=== PATIENT | male | born 1980 | race Caucasian/White ===

== ENCOUNTER 2017-03-21 11:31 | Emergency (ER) | payer MEDICAID ==
[2017-03-21] MEDS ORDERED: Albuterol/Ipratropium 3.0-0.5 MG/3 ML Neb Soln NEB ONE (11:50)
--- NOTE | 2017-03-21 11:53 | EDM.PDOC ---
ED HPI GENERAL MEDICAL PROBLEM - General Chief Complaint: Respiratory Problem Stated Complaint: COLD Time Seen by Provider: 03/21/17 11:45 - History of Present Illness INITIAL COMMENTS - FREE TEXT/NARRATIVE: HISTORY AND PHYSICAL: History of present illness: The patient is a 36 y/o male who presents with a two-week history of cough productive of phlegm and some subjective fevers without abdominal complaints of vomiting diarrhea. The patient says that he does have aches and pains in his chest and abdomen because of the persistent coughing and hacking but he is not worried about that discomfort. He does not have a sore throat but does have some nasal drainage that started today. Patient said the last time he had these symptoms he had a bronchitis with pneumonia and is concerned about that. Patient has been eating and drinking normally but he is a tank truck driver and says that he does drink a lot of caffeinated products. He has no known cardiac or pulmonary but he is a tobacco user. Review of systems: As per history of present illness and below otherwise all systems reviewed and negative. Past medical history: As per history of present illness and as reviewed below otherwise noncontributory. Surgical history: As per history of present illness and as reviewed below otherwise noncontributory. Social history: No reported history of drug or alcohol abuse. Family history: As per history of present illness and as reviewed below otherwise noncontributory. Physical exam: Gen.: Well-developed well-nourished overweight male who is nontoxic and vital signs of an reviewed by me HEENT: Atraumatic, normocephalic, pupils reactive, negative for conjunctival pallor or scleral icterus, mucous membranes moist, throat clear, neck supple, nontender, trachea midline. No cervical adenopathy or nuchal rigidity Lungs: Clear to auscultation with occasional coarse breath sound appreciated and subtly diminished breath sounds in the bases but no worker breathing, breath sounds equal bilaterally, chest nontender. Heart: S1S2, regular rate and rhythm no overt murmurs Abdomen: Soft, nondistended, nontender. NABS Pelvis: Stable nontender. Genitourinary: Deferred. Rectal: Deferred. Extremities: Atraumatic, negative for cords or calf pain. Neurovascular unremarkable. Neuro: Awake, alert, oriented. Cranial nerves II through XII unremarkable. Cerebellum unremarkable. Motor and sensory unremarkable throughout. Exam nonfocal. Diagnostics: Chest x-ray Therapeutics: DuoNeb spacer teaching Patient feels improved after the DuoNeb and we will proceed to treat him as a bronchitis but due to his smoking history I will also give him an antibiotic. I described the use of the inhaler as well as the steroids and a buttocks for home and advised hydration and close follow-up with primary care. Impression: Bronchitis Definitive disposition and diagnosis as appropriate pending reevaluation and review of above. - Related Data Allergies Allergy/AdvReac Type Severity Reaction Status Date / Time No Known Allergies Allergy Verified 03/21/17 11:38 Home Meds: Home Meds . [No Known Home Meds] 03/21/17 [History] Past Medical History - Past Health History Medical/Surgical History: Denies Medical/Surgical History Social & Family History - Family History Family Medical History: Noncontributory - Tobacco Use Smoking Status *Q: Current Every Day Smoker Years of Tobacco use: 10 Packs/Tins Daily: 1 - Recreational Drug Use Recreational Drug Use: No ED ROS GENERAL - Review of Systems Review Of Systems: ROS reveals no pertinent complaints other than HPI. ED EXAM, GENERAL - Physical Exam Exam: See Below (See dictation) Course - Vital Signs Last Recorded V/S: Last Vital Signs Temp 36.6 C 03/21/17 11:31 Pulse 84 03/21/17 11:31 Resp 18 03/21/17 11:31 BP 140/92 H 03/21/17 11:31 Pulse Ox 94 L 03/21/17 11:31 - Orders/Labs/Meds Orders: Active Orders 24 hr Category Date Time Status Communication Order [RC] STAT Care 03/21/17 11:51 Active RT Aerosol Therapy [RC] ASDIRECTED Care 03/21/17 11:51 Active Chest 2V [CR] Stat Exams 03/21/17 11:50 Taken Meds: Medications Discontinued Medications Generic Name Dose Route Start Last Admin Trade Name Freq PRN Reason Stop Dose Admin Albuterol/Ipratropium 3 ml 03/21/17 11:50 03/21/17 12:01 Duoneb 3.0-0.5 Mg/3 Ml NEB 03/21/17 11:51 3 ml ONETIME ONE Administration Departure - Departure Time of Disposition: 13:00 Disposition: Home, Self-Care 01 Condition: Good Clinical Impression: Bronchitis - Discharge Information Referrals: PCP,None [Primary Care Provider] - Forms: ED Department Discharge Additional Instructions: The following information is given to patients seen in the emergency department who are being discharged to home. This information is to outline your options for follow-up care. We provide all patients seen in our emergency department with a follow-up referral. The need for follow-up, as well as the timing and circumstances, are variable depending upon the specifics of your emergency department visit. If you don't have a primary care physician on staff, we will provide you with a referral. We always advise you to contact your personal physician following an emergency department visit to inform them of the circumstance of the visit and for follow-up with them and/or the need for any referrals to a consulting specialist. The emergency department will also refer you to a specialist when appropriate. This referral assures that you have the opportunity for followup care with a specialist. All of these measure are taken in an effort to provide you with optimal care, which includes your followup. Under all circumstances we always encourage you to contact your private physician who remains a resource for coordinating your care. When calling for followup care, please make the office aware that this follow-up is from your recent emergency room visit. If for any reason you are refused follow-up, please contact the [facility] emergency department at and ask to speak to the emergency department charge nurse. [facility] Primary care- Internal Medicine and Family [address] [address] Please use your inhaler every 6 hours for the next 2 days and then every 6 hours as needed afterwards. Please also take the prednisone as prescribed and has given to you from the ER. Please also take Zithromax as directed. Please push hydration and try to reduce and/or eliminate smoking and reduce caffeine use. Please call and follow-up with your provider or one of our clinic physicians the next few days for reevaluation and further care. Return to ER as needed and as discussed - My Orders Last 24 Hours: My Active Orders 03/21/17 11:50 Chest 2V [CR] Stat 03/21/17 11:51 Communication Order [RC] STAT RT Aerosol Therapy [RC] ASDIRECTED - Assessment/Plan Last 24 Hours: My Active Orders 03/21/17 11:50 Chest 2V [CR] Stat 03/21/17 11:51 Communication Order [RC] STAT RT Aerosol Therapy [RC] ASDIRECTED
[2017-03-21 13:15] VITALS: BP 146/98
--- NOTE | 2017-03-22 18:36 | CR ---
EXAM DATE: 03/21/17 PATIENT'S AGE: 36 Patient: ESTEPHANIE CARMEN Facility: [place], [place] Site . Site : [id number] Study: XRay Chest [id number]/4/2017 12:33:59 PM Ordering Physician: Brandon Diaz Final Report: INDICATION: pain/sob 2 View Chest. Findings: The lungs are clear. Pulmonary vascularity, mediastinum and cardiac silhouette are within normal limits. No effusions and no pneumothorax. Osseous structures appear unremarkable. Impression: No evidence of acute cardiopulmonary disease. Dictated by: Mk Stone MD @ 03/21/2017 12:51:53 (Electronic Signature) Report Signed by Proxy. [facility]ITAL[facility]
== END 2017-03-21 13:12 | disposition home or self-care (01) ==
LOC: MW.ED 11:31
DX: J40 Bronchitis, not specified as acute or chronic (principal); F17.210 Nicotine dependence, cigarettes, uncomplicated
CPT/HCPCS: 71020; 71020-26; 94664; 99282; 99284-25

== ENCOUNTER 2018-12-10 22:01 | Emergency (ER) | payer SELFPAY ==
--- NOTE | 2018-12-10 22:22 | EDM.PDOC ---
ED HPI GENERAL MEDICAL PROBLEM - General Chief Complaint: General Stated Complaint: UPPER RESPIRATORY Time Seen by Provider: 12/10/18 22:20 - History of Present Illness INITIAL COMMENTS - FREE TEXT/NARRATIVE: HISTORY AND PHYSICAL: History of present illness: Patient is a 38-year-old male who presents with a concern of intermittent cough and left sinus pain 1 day he denies fever chills nausea vomiting he is a smoker. Patient felt he may have aspirated some taco meat several days prior into his nasopharynx Review of systems: As per history of present illness and below otherwise all systems reviewed and negative. Past medical history: As per history of present illness and as reviewed below otherwise noncontributory. Surgical history: As per history of present illness and as reviewed below otherwise noncontributory. Social history: No reported history of drug or alcohol abuse. Family history: As per history of present illness and as reviewed below otherwise noncontributory. Physical exam: HEENT: Atraumatic, normocephalic, pupils reactive, negative for conjunctival pallor or scleral icterus, mucous membranes moist, throat clear, neck supple, nontender, trachea midline. Mild tenderness over the left maxillary sinus Lungs: Coarse bilaterally, breath sounds equal bilaterally, chest nontender. Heart: S1S2, regular, negative for clicks, rubs, or JVD. Abdomen: Soft, nondistended, nontender. Negative for masses or hepatosplenomegaly. Negative for costovertebral tenderness. Pelvis: Stable nontender. Genitourinary: Deferred. Rectal: Deferred. Extremities: Atraumatic, negative for cords or calf pain. Neurovascular unremarkable. Neuro: Awake, alert, oriented. Cranial nerves II through XII unremarkable. Cerebellum unremarkable. Motor and sensory unremarkable throughout. Exam nonfocal. Diagnostics: X-ray chest x-ray sinus Therapeutics: Albuterol ipratropium nebulizer Impression: #1 tracheobronchitis #2 sinusitis Definitive disposition and diagnosis as appropriate pending reevaluation and review of above. - Related Data Allergies Allergy/AdvReac Type Severity Reaction Status Date / Time bee venom protein (honey bee) Allergy Anaphylactic Verified 12/10/18 22:13 Shock Home Meds: Home Meds . [No Known Home Meds] 03/21/17 [History] Past Medical History - Past Health History Medical/Surgical History: Denies Medical/Surgical History Social & Family History - Family History Family Medical History: Noncontributory - Tobacco Use Smoking Status *Q: Current Every Day Smoker Years of Tobacco use: 20 Packs/Tins Daily: 1 - Caffeine Use Caffeine Use: Reports: Coffee, Energy Drinks, Soda, Tea - Recreational Drug Use Recreational Drug Use: No ED ROS GENERAL - Review of Systems Review Of Systems: ROS reveals no pertinent complaints other than HPI. ED EXAM, GENERAL - Physical Exam Exam: See Below Course - Vital Signs Last Recorded V/S: Last Vital Signs Temp 36.4 C 12/10/18 22:13 Pulse 99 12/10/18 23:45 Resp 18 12/10/18 23:45 BP 125/68 12/10/18 23:45 Pulse Ox 96 12/10/18 23:45 - Orders/Labs/Meds Orders: Active Orders 24 hr Category Date Time Status RT Aerosol Therapy [RC] ASDIRECTED Care 12/10/18 22:23 Active Meds: Medications Discontinued Medications Generic Name Dose Route Start Last Admin Trade Name Arleen PRN Reason Stop Dose Admin Albuterol/Ipratropium 3 ml 12/10/18 22:23 12/10/18 22:46 Duoneb 3.0-0.5 Mg/3 Ml NEB 12/10/18 22:24 3 ml ONETIME ONE Administration Departure - Departure Time of Disposition: 23:50 Disposition: Home, Self-Care 01 Condition: Good Clinical Impression: Sinusitis, Tracheobronchitis - Discharge Information Referrals: Michaela Hector MD [Primary Care Provider] - Forms: ED Department Discharge Additional Instructions: The following information is given to patients seen in the emergency department who are being discharged to home. This information is to outline your options for follow-up care. We provide all patients seen in our emergency department with a follow-up referral. The need for follow-up, as well as the timing and circumstances, are variable depending upon the specifics of your emergency department visit. If you don't have a primary care physician on staff, we will provide you with a referral. We always advise you to contact your personal physician following an emergency department visit to inform them of the circumstance of the visit and for follow-up with them and/or the need for any referrals to a consulting specialist. The emergency department will also refer you to a specialist when appropriate. This referral assures that you have the opportunity for followup care with a specialist. All of these measure are taken in an effort to provide you with optimal care, which includes your followup. Under all circumstances we always encourage you to contact your private physician who remains a resource for coordinating your care. When calling for followup care, please make the office aware that this follow-up is from your recent emergency room visit. If for any reason you are refused follow-up, please contact the [facility] emergency department at and asked to speak to the emergency department charge nurse. Augmentin albuterol as prescribed stop smoking follow-up private medical doctor as needed as discussed and return as needed as discussed - My Orders Last 24 Hours: My Active Orders 12/10/18 22:23 RT Aerosol Therapy [RC] ASDIRECTED - Assessment/Plan Last 24 Hours: My Active Orders 12/10/18 22:23 RT Aerosol Therapy [RC] ASDIRECTED
[2018-12-10] MEDS ORDERED: Albuterol/Ipratropium 3.0-0.5 MG/3 ML Neb Soln NEB ONE (22:23)
[2018-12-10 23:46] VITALS: BP 125/68
--- NOTE | 2018-12-10 23:48 | CR ---
HISTORY: Cough, congestion, sensation of nasal fullness. COMPARISON: None available. FINDINGS: The paranasal sinuses are examined with AP, Carlos, and lateral views. There is no sign of acute or chronic sinusitis. The paranasal sinuses are clear with no sign of mucosal thickening. The osseous structures of the orbits and face are normal in appearance. The calvarium is normal in appearance as well. IMPRESSION: Normal three-view examination of the paranasal sinuses. Dictated by Leonardo Garcia MD @ Dec 10 2018 11:46PM Signed by Dr. Leonardo Garcia @ Dec 10 2018 11:47PM
--- NOTE | 2018-12-10 23:48 | CR ---
INDICATION: Cough COMPARISON: Report of the previous CT of the chest from 03/21/2017 FINDINGS: PA and lateral views of the chest were obtained. The lungs remain clear. No focal or diffuse infiltrates are present. The heart remains normal in size. The mediastinum is normal in appearance. The osseous structures are normal in appearance for the patient`s age. There has been no change compared to the previous report. IMPRESSION: Normal chest two views. Dictated by Leonardo Garcia MD @ Dec 10 2018 11:45PM Signed by Dr. Leonardo Garcia @ Dec 10 2018 11:46PM
== END 2018-12-10 23:57 | disposition home or self-care (01) ==
LOC: MW.ED 22:01
DX: J40 Bronchitis, not specified as acute or chronic (principal); J32.9 Chronic sinusitis, unspecified; F17.210 Nicotine dependence, cigarettes, uncomplicated; Z91.030 Bee allergy status
CPT/HCPCS: 71046; 71046-26; 94640; 99282; 99283-25; J7620-GY